=== PATIENT | male | born 2000 | race Caucasian/White ===

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

== ENCOUNTER 2023-09-25 02:37 | Emergency (ER) | payer MEDICAID ==
[~2023-09-25] VITALS: Ht 170.2 cm; Wt 79.5 kg
[2023-09-25 02:49] VITALS: BP 132/71; PULSE 102; RESP 14; TEMP 97.9; O2SAT 95
[2023-09-25] MEDS: ibuprofen tablet 400 MG TABLET PO ONE (03:04)
[2023-09-25] MEDS: acetaminophen 325mg tablet PO ONE (03:04)
== END 2023-09-25 03:13 | disposition home or self-care (01) ==
LOC: ER 02:37
DX: M25.571 Pain in right ankle and joints of right foot (principal); H92.01 Otalgia, right ear; Y08.89XA Assault by other specified means, initial encounter; Y93.89 Activity, other specified; Y92.89 Other specified places as the place of occurrence of the external cause; Y99.8 Other external cause status
CPT/HCPCS: 99283